=== PATIENT | male | born 1965 | race Caucasian/White ===

== ENCOUNTER → 2016-10-24 | Day surgery (SDC) | payer BC ==
--- NOTE | 2016-10-20 09:40 | HP ---
PREOPERATIVE HISTORY AND PHYSICAL: DATE OF ADMISSION: 10/24/2016. CHIEF COMPLAINT: Right ring finger and small finger pain. HISTORY OF PRESENT ILLNESS: Marlon is a 51-year-old male who injured his right hand in 2014 in the springtime. He does not recall a specific injury, but perhaps injured at playing basketball. He has continued to do things with taping his fingers together, but he has persistent pain at the MP joint of the right small finger. Additionally, he has developed trigger finger of the ring finger. He has had a couple of cortisone injections, but the symptoms have returned. He now presents for surgical treatment for a right small finger radial collateral ligament repair at the metacarpophalangeal joint and a right ring finger trigger finger release. PAST MEDICAL HISTORY: He has no chronic medical problems. He has a history of back pain. PAST SURGICAL HISTORY: None. CURRENT MEDICATIONS: None. DRUG ALLERGIES: None. FAMILY HISTORY: Cancer. SOCIAL HISTORY: Lives alone. 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 He has never smoked cigarettes. He does consume alcohol occasionally. He exercises regularly. PHYSICAL EXAMINATION GENERAL: He is a healthy-appearing very pleasant male in minimal distress at rest. VITAL SIGNS: His height is 70 inches, weight is 170 pounds. HEENT: Unremarkable. He has good range of motion of his neck without pain. No masses are palpated. His eye movements are concentric. LUNGS: Clear to auscultation. Good inspiratory effort. No wheezing. CARDIAC: Regular rate and rhythm without murmur. PERIPHERAL VASCULAR: He has palpable pulses. No peripheral edema. EXTREMITIES: He has tenderness at the radial aspect of the small finger MP joint of the right hand and tenderness at the A1 celso of the ring finger. He can fully flex his fingers into a fist and he has full extension. He has pain with abduction of the small finger. His neurovascular function is intact. NEUROLOGICAL: He is alert and oriented without focal deficits. IMPRESSION: Right ring finger trigger finger and right small finger radial collateral ligament tear at the metacarpophalangeal joint pain. PLAN: Right ringer finger trigger release and a right small finger radial collateral ligament repair at the metacarpophalangeal joint. The surgical procedure, the risks and benefits were explained to the patient today and he agrees to proceed. We will see him back in followup for reevaluation in 10 to 14 days postop. [id number][place] [place]: [id number] [facility]
[~2016-10-24] MED LIST: Buffered Lidocaine 1% SYR 3ML* 3 ML/SYR SYRINGE INTRADERM ONE; Buffered Lidocaine 1% SYR 3ML* 3 ML/SYR SYRINGE ONE; Bupivacaine 0.5% SDV PF* 30 ML VIAL ONE; DiMENhydriNATE IV* 50 MG/ML VIAL IV PUSH PRN; HYDROcodone/ACETAMIN 5-325 MG* 1 TAB PO PRN; Ketorolac INJ* 30 MG/ML 1 ML VIAL ONE; Lidocaine 0.5%* 50 ML SDV ONE; Midazolam* 1 MG/ML 5 ML VIAL (5 MG) ONE; Ondansetron INJ* 2 MG/ML VIAL IV PRN; ceFAZolin 2 GM PREMIX (*) 2 GM/50 ML BAG IVPB ONE; fentaNYL* 50 MCG/ML 2 ML VIAL (100 MCG VIAL) IV PRN; fentaNYL* 50 MCG/ML 2 ML VIAL (100 MCG VIAL) ONE; oxyCODONE TAB* 5 MG TAB PO PRN
[2016-10-24 15:51] VITALS: BP 124/71
--- NOTE | 2016-10-25 00:57 | OP ---
DATE OF OPERATION: 10/24/16 [facility] DATE OF : 61 SURGEON: Sarah Pedroza MD. LOCK TECHNICIAN: JOSE Domingo. ANESTHESIOLOGIST: Roni Ellington MD ANESTHESIA: IV regional. PRE-OP DIAGNOSES: Radial collateral ligament tear of the right small finger MP joint and right ring finger trigger finger. POST-OP DIAGNOSES: Radial collateral ligament tear of the right small finger MP joint and right ring finger trigger finger. OPERATIVE PROCEDURE: Right ring finger trigger release and radial collateral ligament repair of the small finger MP joint. INDICATION: Marlon is a 51-year-old male who injured his right hand. He has failed conservative treatment. He has a trigger finger of the right ring and a collateral ligament injury of the small finger radial aspect MP joint. He presents for repair of the ligament and trigger finger release. ESTIMATED BLOOD LOSS: Zero. TOURNIQUET TIME: About 35 minutes. DESCRIPTION OF PROCEDURE: The patient was brought to the operating room and was given a IV regional anesthetic with the tourniquet around his right forearm. The skin of his right upper extremity was prepped and draped in the usual sterile fashion. A transverse incision was made centered over the A1 celso of the right right finger. We dissected bluntly through the subcutaneous tissue down to the A1 celso which was incised longitudinally, completely releasing the tendons which were in good condition. The wound was irrigated and the skin edges reapproximated with 4-0 nylon suture. Next, a longitudinal incision was made on the radial aspect of the small finger MP joint dorsally. We dissected bluntly down to the extensor acosta which was incised longitudinally , giving us access to the radial MP joint capsule. The capsule had healed in length and fashion. Therefore, the proximal aspect was elevated off the metacarpal head and a single Mitek suture anchor was placed. The ligament was reattached in shortened fashion with the sutures and this gave good stability to the joint. The wound was irrigated. The extensor acosta was repaired with 2- 0 Ethibond suture and then the skin edges reapproximated with 4-0 nylon suture. The wound was dressed with Xeroform, 4x4, Webril, and sheeba tape with the small finger to the ring finger. The patient tolerated the procedure well and was brought to the recovery room in good condition. [id number]/[facility] #: [id number] [facility]
== END | disposition home or self-care (01) ==
LOC: OREAST 11:34
PROVIDERS: ATTEND Orthopaedic Surgery
DX: S63.656A Sprain of metacarpophalangeal joint of right little finger, initial encounter (principal); M65.341 Trigger finger, right ring finger; W23.0XXA Caught, crushed, jammed, or pinched between moving objects, initial encounter; Y92.9 Unspecified place or not applicable
CPT/HCPCS: C1713; J0690; J1885; J2250; J3010

== ENCOUNTER 2017-05-04 15:12 | Emergency (ER) | payer BC ==
--- NOTE | 2017-05-04 17:15 | UC ---
Truncal Trauma HPI - HPI Summary HPI Summary: 51 yo male with right lateral rib pain after collision playing soccer 3 days ago no sob hurts to twist or take a deep breath or lay on right side - History Of Current Complaint Chief Complaint: UCTrauma Stated Complaint: RIB INJURY Time Seen by Provider: 05/04/17 17:01 Hx Obtained From: Patient Onset/Duration: Sudden Onset Onset Of Pain: Immediate Severity Initially: Moderate Severity Currently: Moderate Pain Intensity: 6 Pain Scale Used: 0-10 Numeric Mechanism Of Injury: Blunt Trauma Aggravating Factor(s): Movement, Deep Breathing, Cough Alleviating factor(s): Rest Associated Signs And Symptoms: Positive: Chest Pain - Allergies/Home Medications Allergies/Adverse Reactions: Allergies Allergy/AdvReac Type Severity Reaction Status Date / Time No Known Allergies Allergy Verified 05/04/17 15:20 PMH/Surg Hx/FS Hx/Imm Hx Previously Healthy: Yes - Surgical History Surgical History: Yes Surgery Procedure, Year, and Place: TONSILECTOMY A CHILD. RHINOPLASTY Xs 2. WISDOM TEETH. 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 2013 COLONOSCOPY, [facility] - Family History Known Family History: Negative: Cardiac Disease, Hypertension - Social History Alcohol Use: Weekly Substance Use Type: None Smoking Status (MU): Never Smoked Tobacco Review of Systems Constitutional: Negative Skin: Negative Eyes: Negative ENT: Negative Respiratory: Negative Cardiovascular: Chest Pain Gastrointestinal: Negative Genitourinary: Negative Motor: Negative Neurovascular: Negative Musculoskeletal: Negative Neurological: Negative Psychological: Negative All Other Systems Reviewed And Are Negative: Yes Physical Exam Triage Information Reviewed: Yes Appearance: Well-Appearing, No Pain Distress, Well-Nourished Vital Signs: Initial Vital Signs Temp 98.7 F 05/04/17 15:17 Pulse 55 05/04/17 15:17 Resp 16 05/04/17 15:17 BP 102/59 05/04/17 15:17 Pulse Ox 97 05/04/17 15:17 Vital Signs Reviewed: Yes Eyes: Positive: Conjunctiva Clear ENT: Positive: Hearing grossly normal. Negative: Nasal congestion, Nasal drainage, Trismus, Muffled/hoarse voice Neck: Positive: Supple, Nontender, No Lymphadenopathy Respiratory: Positive: Lungs clear, Normal breath sounds, No respiratory distress, No accessory muscle use. Negative: Chest non-tender Cardiovascular: Positive: RRR, No Murmur Abdomen Description: Positive: Nontender, No Organomegaly, Soft. Negative: CVA Tenderness (R), CVA Tenderness (L) Musculoskeletal: Positive: Strength Intact, ROM Intact, No Edema Neurological Exam: Normal Psychological Exam: Normal Truncal Trauma Course/Dx - Differential Dx/Diagnosis Provider Diagnoses: right 9th rib fracture (minimally displaced) Discharge - Discharge Plan Condition: Stable Disposition: HOME Patient Education Materials: Rib Fracture (ED) Referrals: Sacha Quintero MD [Primary Care Provider] - 2 Weeks (recheck in 2-3 weeks) Additional Instructions: advil or aleve Images Front/Back of Body, Lg ([place]): 1 - point tenderness
--- NOTE | 2017-05-04 17:24 | RAD ---
HISTORY: Right anterolateral rib pain, subacute trauma COMPARISONS: None VIEWS: 6, Frontal view of the chest with frontal and oblique views of the right hemithorax. FINDINGS: There is a nondisplaced fracture of the right ninth rib. There is no appreciable pneumothorax. There is hyperinflation. IMPRESSION: 1. NONDISPLACED RIGHT NINTH RIB FRACTURE. 2. NO APPRECIABLE PNEUMOTHORAX. 3. HYPERINFLATION WHICH CAN BE SEEN WITH COPD OR REACTIVE AIRWAY DISEASE.
[2017-05-04 17:45] VITALS: BP 110/68
== END 2017-05-04 17:39 | disposition home or self-care (01) ==
LOC: UCEAST 15:12
DX: S22.31XA Fracture of one rib, right side, initial encounter for closed fracture (principal); W51.XXXA Accidental striking against or bumped into by another person, initial encounter; Y93.66 Activity, soccer; Y92.9 Unspecified place or not applicable; Y99.9 Unspecified external cause status
CPT/HCPCS: 99212; G0463